=== PATIENT | female | born 1955 | race Caucasian/White ===

== ENCOUNTER 2019-06-19 07:01 | Day surgery (SDC) | payer OTHER ==
[2019-06-19] MEDS ORDERED: ISOSULFAN BLUE 1% 5 ML INJ SC (09:02)
[2019-06-19] MEDS ORDERED: PROPOFOL 1000 MG INJ (11:25)
[2019-06-19] MEDS ORDERED: LIDOCAINE 2% (SDV) 5 ML INJ (11:25)
[2019-06-19] MEDS ORDERED: SCOPOLAMINE 1.5 MG PATCH (11:25)
[2019-06-19] MEDS ORDERED: FENTAnyl 50 MCG/ML VIAL (11:27)
[2019-06-19] MEDS ORDERED: GLYCOPYRROLATE 0.4 MG INJ (11:58)
[2019-06-19] MEDS ORDERED: EPHEDrine 25 MG/5 ML SYG (11:58)
[2019-06-19] MEDS: SOD CHLORIDE 0.9% 1,000 ML IV (12:00)
[2019-06-19] MEDS ORDERED: CEFAZOLIN 1 GM/50 ML (PMX) 50 ML IVPB (12:00)
[2019-06-19] MEDS ORDERED: ONDANSETRON 4 MG INJ (12:13)
[2019-06-19] MEDS ORDERED: DEXAMETHASONE 4 MG/ML 5 ML INJ (12:13)
[2019-06-19] MEDS ORDERED: FAMOTIDINE 20 MG INJ (12:14)
[2019-06-19] MEDS ORDERED: HYDROmorphONE 1 MG/5 ML IV SYRINGE IV ×2 (13:00)
[2019-06-19] MEDS ORDERED: MEPERIDINE 25 MG INJ IV (13:00)
[2019-06-19] MEDS ORDERED: ONDANSETRON 4 MG INJ IV (13:00)
[2019-06-19] MEDS ORDERED: FENTAnyl 50 MCG/ML VIAL IV ×2 (13:00)
== END 2019-06-19 15:20 | disposition home or self-care (01) ==
LOC: SDS 07:01
DX: C50.912 Malignant neoplasm of unspecified site of left female breast (principal)
CPT/HCPCS: 19301; 88307; 88331